=== PATIENT | female | born 1990 | race Caucasian/White ===

== ENCOUNTER 2016-11-05 20:50 | Outpatient (CLI) | payer OTHER ==
[~2016-11-05 20:50] MED LIST: COLACE 100MG C100 MG PO
[2016-11-05 23:36] LABS: HEMOGLOBIN 10.3 gm/dl (12.3-15.3); RED BLOOD COUNT 3.78 M/UL (4.00-5.10); WHITE BLOOD COUNT 10.4 K/UL (4.5-11.0)
== END 2016-11-06 01:21 | disposition home or self-care (01) ==
LOC: GENOP 20:50 → ER1 20:50 → GENOP 20:50 → EDSTATUS 20:58 → GENOP 21:10 → OB 21:10 → GENOP 11-06 01:21 → OB 11-06 01:21
PROVIDERS: Obstetrics & Gynecology
DX: O99.89 Other specified diseases and conditions complicating pregnancy, childbirth and the puerperium (principal); R53.1 Weakness; Z3A.28 28 weeks gestation of pregnancy
CPT/HCPCS: 36415; 81001; 84443; 85025; 93005; G0463

== ENCOUNTER 2017-04-18 21:14 | Emergency (ER) | payer OTHER ==
[2017-04-18 23:56] LABS: HEMOGLOBIN 11.9 gm/dl (12.3-15.3); RED BLOOD COUNT 4.21 M/UL (4.00-5.10); WHITE BLOOD COUNT 11.1 K/UL (4.5-11.0)
[2017-04-19 00:05] LABS: BUN/CREATININE RATIO 16 (0-10)
== END 2017-04-19 01:50 | disposition home or self-care (01) ==
LOC: ER1 21:14
PROVIDERS: Physician Assistant
DX: R00.2 Palpitations (principal); Z88.0 Allergy status to penicillin
CPT/HCPCS: 36415; 80048; 84439; 84443; 85025; 93005; 99285

== ENCOUNTER → 2021-09-14 | Outpatient (CLI) | payer OTHER ==
[~2021-09-14] MED LIST changes: +TAMIFLU75 MG PO
== END ==
LOC: EXRD 08:05
DX: R10.11 Right upper quadrant pain (principal); K80.20 Calculus of gallbladder without cholecystitis without obstruction
CPT/HCPCS: 76705

== ENCOUNTER 2021-12-27 03:47 | Emergency (ER) | payer OTHER, MEDICAID ==
[2021-12-27 05:13] LABS: HEMOGLOBIN 12.5 gm/dl (12.3-15.3); RED BLOOD COUNT 4.15 M/UL (4.00-5.10); WHITE BLOOD COUNT 16.5 K/UL (4.5-11.0)
[2021-12-27 05:43] LABS: BUN/CREATININE RATIO 16 (0-10)
[2021-12-27] MEDS ORDERED: HYDROCODON-ACE1 EAC6 PO ×3 (11:08→11:47)
[2021-12-27] MEDS ORDERED: ZOFRAN ODT 4 MG4 MG SL (11:45)
== END 2021-12-27 12:19 | disposition home or self-care (01) ==
LOC: ER1 03:47
PROVIDERS: Student in an Organized Health Care Education/Training Program
DX: S82.842A Displaced bimalleolar fracture of left lower leg, initial encounter for closed fracture (principal); F10.129 Alcohol abuse with intoxication, unspecified; Z88.0 Allergy status to penicillin; V49.40XA Driver injured in collision with unspecified motor vehicles in traffic accident, initial encounter; Y92.410 Unspecified street and highway as the place of occurrence of the external cause; W22.12XA Striking against or struck by front passenger side automobile airbag, initial encounter
CPT/HCPCS: 27810; 70450; 71260; 72125; 73600; 73610; 80053; 85025; 93005; 96374; 96375; 96376; 99284; G0480; J1170; J2270; J2405; J3010; Q9967

== ENCOUNTER → 2021-12-31 | Outpatient (CLI) | payer OTHER ==
[~2021-12-31] MED LIST changes: +HYDROCODON-ACE1 EAC6 PO; +ZOFRAN ODT 4 MG4 MG SL
== END ==
LOC: KOH-I 09:57
DX: M25.532 Pain in left wrist (principal)
CPT/HCPCS: 73110

== ENCOUNTER → 2022-01-18 | Day surgery (SDC) | payer OTHER ==
[~2022-01-18] VITALS: Ht 162.6 cm; Wt 90.7 kg
[~2022-01-18] MED LIST changes: +PROTONIX40 MG PO; +ROXICODONE5 MG PO
== END | disposition home or self-care (01) ==
LOC: OR 06:12
DX: S82.842A Displaced bimalleolar fracture of left lower leg, initial encounter for closed fracture (principal); S93.432A Sprain of tibiofibular ligament of left ankle, initial encounter; G89.18 Other acute postprocedural pain; K21.9 Gastro-esophageal reflux disease without esophagitis; V49.9XXA Car occupant (driver) (passenger) injured in unspecified traffic accident, initial encounter; Z88.0 Allergy status to penicillin
CPT/HCPCS: 36415; 73610; 76000; 84703; C1713; J1100; J1170; J2001; J2250; J2370; J2405; J2704; J2795; J3010